=== PATIENT | male | born 1940 | race Caucasian/White ===

== ENCOUNTER 2018-02-12 08:45 | Day surgery (SDC) | payer OTHER ==
[2018-02-12] MEDS ORDERED: D5 LR 1000 ML 1,000 ML IV ONE (08:57)
[2018-02-12] MEDS ORDERED: DIPRIVAN VIAL 20 ML ONE (10:22)
[2018-02-12 11:05] VITALS: BP 109/61
== END 2018-02-12 11:02 | disposition home or self-care (01) ==
LOC: SURG1 08:45
PROVIDERS: ATTEND Internal Medicine Gastroenterology
PROC: 0DB68ZX Excision of Stomach, Via Natural or Artificial Opening Endoscopic, Diagnostic (ICD-10-PCS; principal; 2018-02-12 14:00)
PROC: 0DJ08ZZ Inspection of Upper Intestinal Tract, Via Natural or Artificial Opening Endoscopic (ICD-10-PCS; principal; 2018-02-12 14:00)
PROC: 0D757ZZ Dilation of Esophagus, Via Natural or Artificial Opening (ICD-10-PCS; principal; 2018-02-12 14:00)
DX: R13.19 Other dysphagia (principal); R11.2 Nausea with vomiting, unspecified; K21.9 Gastro-esophageal reflux disease without esophagitis; K22.2 Esophageal obstruction; K20.8 Other esophagitis; K29.60 Other gastritis without bleeding
CPT/HCPCS: 99100; A4217; J3490; J7120

== ENCOUNTER 2018-02-18 09:28 | Observation (INO) | payer OTHER ==
[2018-02-18] MEDS ORDERED: ZOFRAN INJ 4 MG VIAL IVP PRN (10:18)
[2018-02-18] MEDS: NS 1000 ML 1,000 ML IV SCH (10:50)
[2018-02-18 10:55] LABS: BASOPHILS # (AUTO) 0.1 X10^3/uL (0.0-0.1); BASOPHILS % (AUTO) 1.6 % (0.2-1.0); EOSINOPHILS # (AUTO) 0.2 x10^3/uL (0.0-0.2); EOSINOPHILS % (AUTO) 2.3 % (0.9-2.9); HEMATOCRIT 32.8 % (42.0-54.0); LYMPHOCYTES # (AUTO) 2.1 X10^3/uL (1.3-2.9); LYMPHOCYTES % (AUTO) 23.8 % (21.0-51.0); MEAN CORPUSCULAR HGB CONC 33.6 g/dL (33.0-35.0); MEAN CORPUSCULAR VOLUME 86.2 fL (80.0-100.0); MONOCYTES # (AUTO) 0.6 x10^3/uL (0.3-0.8); MONOCYTES % (AUTO) 7.3 % (0.0-13.0); NEUTROPHILS # (AUTO) 5.7 x10^3/uL (2.2-4.8); PLATELET COUNT 229 X10^3/uL (150.0-450.0); RED CELL DISTRIBUTION WIDTH 15.9 % (11.6-16.5); WHITE BLOOD COUNT 8.7 X10^3/uL (3.6-10.0)
[2018-02-18 11:02] LABS: BLOOD UREA NITROGEN 21 mg/dL (7-18); CALCIUM 8.4 mg/dL (8.5-10.1); CARBON DIOXIDE 31.4 mmol/L (21-32); CHLORIDE 100 mmol/L (98-107); CREATININE 1.71 mg/dL (0.70-1.30); eGFR BLACK RACES 50 (>60); eGFR NON BLACK RACES 41 (>60)
[2018-02-18 11:03] LABS: SODIUM 137 mmol/L (136-145)
[2018-02-18] MEDS: PROTONIX INJ 40 MG VIAL IVP SCH ×2 (11:08→20:33)
[2018-02-18] MEDS: EFFEXOR XR 75 MG CAP PO SCH (11:12)
[2018-02-18] MEDS: PEPCID 20 MG IV PREMIX* 20 MG/50 ML BAG IV SCH ×2 (11:12→20:33)
[2018-02-18 12:11] LABS: ALANINE AMINOTRANSFERASE 18 Units/L (12-78); ALBUMIN 3.3 g/dL (3.4-5.0); ALKALINE PHOSPHATASE 70 Units/L (46-116); ASPARTATE AMINO TRANSFERASE 25 Units/L (15-37); TOTAL PROTEIN 7.9 g/dL (6.4-8.2)
[2018-02-18 12:57] LABS: BILIRUBIN,URINE NEGATIVE (NEGATIVE); BLOOD/HEMOGLOBIN,URINE 1+ (NEGATIVE); GLUCOSE, URINE NEGATIVE (NEGATIVE); KETONES,URINE NEGATIVE (NEGATIVE); LEUKOCYTE ESTERASE ,URINE 1+ (NEGATIVE); NITRITES,URINE NEGATIVE (NEGATIVE); PROTEIN,URINE 2+ (NEGATIVE); UROBILINOGEN,URINE 2+ (NORMAL)
[2018-02-18 13:03] LABS: COLOR,URINE DARK YELLOW (YELLOW)
[2018-02-18 13:04] LABS: APPEARANCE,URINE HAZY (CLEAR)
[2018-02-18 13:06] LABS: BACTERIA,URINE TRACE /HPF (NEGATIVE); COARSE GRANULAR CASTS,URINE RARE /HPF (NEGATIVE); RBC,URINE 0-2 /HPF (NONE SEEN); SQUAMOUS EPITHELIAL CELL,UR FEW /HPF (NEGATIVE)
--- NOTE | 2018-02-18 14:41 | RAD ---
Examination: Portable AP chest History: SOB Comparison reference 03/17/2015 Findings: Continued normal heart size with essentially clear lungs. Slight indistinctness of left benjamin phragm is nonspecific. Arteriosclerotic and dilated thoracic aorta. Impression: No acute process or significant interval change demonstrated. Standard PA and lateral vie ws suggested for more accurate evaluation when condition allows. Reported By:
[2018-02-19] MEDS: NS 1000 ML 1,000 ML IV SCH ×2 (01:18→14:35)
[2018-02-19 05:47] LABS: BASOPHILS # (AUTO) 0.1 X10^3/uL (0.0-0.1); BASOPHILS % (AUTO) 1.9 % (0.2-1.0); EOSINOPHILS # (AUTO) 0.2 x10^3/uL (0.0-0.2); EOSINOPHILS % (AUTO) 2.9 % (0.9-2.9); HEMOGLOBIN 10.1 g/dL (13.5-18.0); LYMPHOCYTES # (AUTO) 2.1 X10^3/uL (1.3-2.9); MEAN CORPUSCULAR HEMOGLOBIN 28.8 pg (27.0-34.0); MEAN CORPUSCULAR HGB CONC 33.5 g/dL (33.0-35.0); MEAN CORPUSCULAR VOLUME 85.9 fL (80.0-100.0); MEAN PLATELET VOLUME 9.1 fL (7.4-11.0); MONOCYTES # (AUTO) 0.5 x10^3/uL (0.3-0.8); MONOCYTES % (AUTO) 6.9 % (0.0-13.0); NEUTROPHILS # (AUTO) 4.9 x10^3/uL (2.2-4.8); NEUTROPHILS % (AUTO) 61.3 % (42.0-75.0); PLATELET COUNT 202 X10^3/uL (150.0-450.0); RED BLOOD COUNT 3.49 X10^6/uL (4.7-6.0); RED CELL DISTRIBUTION WIDTH 15.5 % (11.6-16.5); WHITE BLOOD COUNT 7.9 X10^3/uL (3.6-10.0)
[2018-02-19 05:59] LABS: ALANINE AMINOTRANSFERASE 14 Units/L (12-78); ALBUMIN 2.5 g/dL (3.4-5.0); ALKALINE PHOSPHATASE 59 Units/L (46-116); ASPARTATE AMINO TRANSFERASE 14 Units/L (15-37); BLOOD UREA NITROGEN 19 mg/dL (7-18); CALCIUM 7.5 mg/dL (8.5-10.1); CARBON DIOXIDE 25.5 mmol/L (21-32); CHLORIDE 107 mmol/L (98-107); COR CA(FOR HYPOALB) 8.7 mg/dL (8.5-10.1); CREATININE 1.41 mg/dL (0.70-1.30); SODIUM 140 mmol/L (136-145); TOTAL PROTEIN 6.2 g/dL (6.4-8.2); eGFR BLACK RACES > 60 (>60); eGFR NON BLACK RACES 52 (>60)
[2018-02-19] MEDS ORDERED: MAGNESIUM SULFATE 1 GM/100 mL PREMIX 1 GM/100 ML BAG IV PRN (06:06)
[2018-02-19] MEDS ORDERED: POTASSIUM CHLORIDE LIQ 20 MEQ UDC PO PRN (06:06)
[2018-02-19] MEDS ORDERED: POTASSIUM CHL 40 MEQ/NS 0.45% 500 ML IV PRN (06:06)
[2018-02-19] MEDS ORDERED: K-LYTE EFFERVESCENT PO PRN (06:06)
[2018-02-19] MEDS ORDERED: K-RIDER 10 MEQ/NS 100 ML 10 MEQ/100 ML BAG IV PRN (06:06)
[2018-02-19] MEDS ORDERED: POTASSIUM CHL 60 MEQ/NS 0.45% 500 ML IV PRN (06:06)
[2018-02-19] MEDS: PROTONIX INJ 40 MG VIAL IVP SCH ×2 (09:09→20:27)
[2018-02-19] MEDS: PEPCID 20 MG IV PREMIX* 20 MG/50 ML BAG IV SCH ×2 (09:09→20:27)
[2018-02-19] MEDS: EFFEXOR XR 75 MG CAP PO SCH (09:10)
[2018-02-19 12:32] VITALS: BMI 17.8
[2018-02-19] MEDS ORDERED: M.S. CONTIN 30 MG EXTENDED RELEASE PO PRN (13:33)
[2018-02-19] MEDS ORDERED: M.S. CONTIN 15 MG (EXTENDED RELEASE) PO PRN (13:58)
[2018-02-19] MEDS ORDERED: PROTONIX TAB 40 MG PO SCH (14:00)
[2018-02-19] MEDS: SYNTHROID 50 mcg TAB PO SCH (14:35)
[2018-02-19] MEDS: MEGACE PO SCH ×2 (14:35→20:28)
[2018-02-19] MEDS: CORDARONE TAB 200 MG PO SCH (14:35)
[2018-02-19] MEDS: COREG TAB 6.25 MG PO SCH (20:28)
[2018-02-19] MEDS ORDERED: PATIENT'S HOME MEDICATION (Clonazepam [Clonazepam] 2 MG) PO SCH (21:00)
[2018-02-19] MEDS ORDERED: KLONOPIN TAB 1 MG PO SCH (21:00)
[2018-02-20] MEDS: NS 1000 ML 1,000 ML IV SCH (04:18)
[2018-02-20 06:41] LABS: BASOPHILS # (AUTO) 0.1 X10^3/uL (0.0-0.1); BASOPHILS % (AUTO) 1.5 % (0.2-1.0); EOSINOPHILS # (AUTO) 0.2 x10^3/uL (0.0-0.2); EOSINOPHILS % (AUTO) 1.7 % (0.9-2.9); HEMATOCRIT 30.7 % (42.0-54.0); HEMOGLOBIN 10.4 g/dL (13.5-18.0); LYMPHOCYTES # (AUTO) 2.2 X10^3/uL (1.3-2.9); LYMPHOCYTES % (AUTO) 22.1 % (21.0-51.0); MEAN CORPUSCULAR HEMOGLOBIN 29.4 pg (27.0-34.0); MEAN CORPUSCULAR VOLUME 86.4 fL (80.0-100.0); MEAN PLATELET VOLUME 9.1 fL (7.4-11.0); MONOCYTES # (AUTO) 0.8 x10^3/uL (0.3-0.8); MONOCYTES % (AUTO) 7.7 % (0.0-13.0); NEUTROPHILS # (AUTO) 6.6 x10^3/uL (2.2-4.8); PLATELET COUNT 211 X10^3/uL (150.0-450.0); RED BLOOD COUNT 3.56 X10^6/uL (4.7-6.0); RED CELL DISTRIBUTION WIDTH 15.5 % (11.6-16.5); WHITE BLOOD COUNT 9.8 X10^3/uL (3.6-10.0)
[2018-02-20 07:00] LABS: ALANINE AMINOTRANSFERASE 17 Units/L (12-78); ALBUMIN 2.7 g/dL (3.4-5.0); ALKALINE PHOSPHATASE 61 Units/L (46-116); ASPARTATE AMINO TRANSFERASE 19 Units/L (15-37); BLOOD UREA NITROGEN 13 mg/dL (7-18); CALCIUM 7.8 mg/dL (8.5-10.1); CARBON DIOXIDE 23.6 mmol/L (21-32); CHLORIDE 108 mmol/L (98-107); COR CA(FOR HYPOALB) 8.8 mg/dL (8.5-10.1); CREATININE 1.23 mg/dL (0.70-1.30); SODIUM 140 mmol/L (136-145); TOTAL PROTEIN 6.5 g/dL (6.4-8.2); eGFR BLACK RACES > 60 (>60); eGFR NON BLACK RACES > 60 (>60)
[2018-02-20] MEDS: MEGACE PO SCH (09:52)
[2018-02-20] MEDS: EFFEXOR XR 75 MG CAP PO SCH (09:52)
[2018-02-20] MEDS: COREG TAB 6.25 MG PO SCH (09:52)
[2018-02-20] MEDS: CORDARONE TAB 200 MG PO SCH (09:52)
[2018-02-20] MEDS: PEPCID 20 MG IV PREMIX* 20 MG/50 ML BAG IV SCH (09:53)
[2018-02-20] MEDS: PROTONIX INJ 40 MG VIAL IVP SCH (09:53)
[2018-02-20] MEDS: SYNTHROID 50 mcg TAB PO SCH (09:53)
[2018-02-20 12:58] VITALS: BP 139/68
--- NOTE | 2018-03-04 09:46 | DR.UPDATE ---
H&P Update History and Physical Update: History and Physical reviewed and patient examined. Changes noted: Yes with the following: PRESENTED TO THE OFFICE TODAY WITH COMPLAINTS OF GENERALIZED WEAKNESS AND DECREASED APPETITE. PATIENTS SPOUSE REPORTS THAT HE HAS HAD AN UNSTEADY GAIT FOR THE PAST TWO DAYS. ON EXAMINATION, SKIN TURGOR NOTED. HEART REGULAR IN RATE AND RHYTHM. BILATERAL LUNGS NOTED WITH DIMINISHED LUNG SOUNDS THROUGHOUT. ABDOMEN FLAT, SOFT, NON-TENDER WITH NORMAL BOWEL SOUNDS NOTED IN ALL QUADRANTS. WE PLANNED TO ADMIT PATIENT FOR FURTHER EVALUATION AND TREATMENT. ON ADMISSION, WE WILL OBTAIN A CBC, CMP, URINALYSIS, AND A CHEST XRAY. HE WILL BE STARTED ON NORMAL SALINE AT 80ML/HR. OTHERWISE, WE WILL FOLLOW UP WITH AM LABS AND CONTINUE TO MONITOR PATIENT.
--- NOTE | 2018-03-04 10:04 | PCM.PROG ---
Progress Note - Progress Note for Day of Date: 02/19/18 - Subjective Subjective: WAS ADMITTED FOR DEHYDRATION AND GENERALIZED WEAKNESS. TODAY, HE IS ALERT AND ORIENTED, LYING IN BED ON MORNING ROUNDS. HE CONTINUES WITH COMPLAINTS OF GENERALIZED WEAKNESS. HE ALSO REPORTS NAUSEA, BUT DENIES VOMITING SINCE YESTERDAY. STAFF REPORTS THAT PATIENT HAS HAD INTERMITTENT CONFUSION THROUGHOUT THE NIGHT AND ALSO CONTINUES WITH AN UNSTEADY GAIT. ON EXAMINATION, HEART IS REGULAR IN RATE AND RHYTHM. BILATERAL LUNGS CONTINUE WITH DIMINISHED LUNG SOUNDS THROGHOUT. ABDOMEN IS FLAT, SOFT, AND NON-TENDER WITH NORMAL BOWEL SOUNDS NOTED IN ALL QUADRANTS. NORMAL RANGE OF MOTION NOTED TO EXTREMITIES. HIS VITALS THIS MORNING ARE 98.2-64-16-91%-147/79. LABS WERE OBTAINED. ABNORMAL LAB VALUES INCLUDE THE FOLLOWING: RBC 3.56, HGB 10.4, HCT 30.7, CHLORIDE 108, CALCIUM 7.8, ALBUMIN 2.7. TODAY, WE WILL CONTINUE WITH IV HYDRATION AND PHYSICAL THERAPY. OTHERWISE, WE WILL FOLLOW UP WITH AM LABS AND CONTINUE TO MONITOR PATIENT. - Past Medical Family Social History Past Med/Fam/Surg Hx: No changes since H&P Allergies: Allergies baclofen Allergy (Verified 02/18/18 10:28) - Review of Systems ROS: No change since H&P - Vital Signs and I&O's Vital Signs: Temperature 98.6 F Pulse Rate [Left Brachial] 67 Respiratory Rate 20 Blood Pressure [Left Arm] 139/68 Blood Pressure [Right Arm] 163/84 Blood Pressure [Right Radial 117/68 Artery] Blood Pressure 109/61 O2 Sat by Pulse Oximetry 94 - Physical Exam Oriented: Normal Eyes: Normal Ear: Normal Nose: Normal Throat: Normal Respiratory: Generalized, Diminished Cardiovascular: Normal : Normal Auscultation: Bowel Sounds: Normal Palpation: Normal Tenderness: Normal Skin: Decreased Turgur Musculoskeletal: Normal Psychiatric: Normal Mood Description: Calm Affect: Normal Speech Pattern: Clear, Appropriate - Laboratory and Diagnostics Result Diagrams: 02/20/18 05:33 02/20/18 05:33 Labs: Laboratory WBC 9.8 X10^3/uL (3.6-10.0) 02/20/18 05:33 RBC 3.56 X10^6/uL (4.7-6.0) L 02/20/18 05:33 Hgb 10.4 g/dL (13.5-18.0) L 02/20/18 05:33 Hct 30.7 % (42.0-54.0) L 02/20/18 05:33 MCV 86.4 fL (80.0-100.0) 02/20/18 05:33 MCH 29.4 pg (27.0-34.0) 02/20/18 05:33 MCHC 34.0 g/dL (33.0-35.0) 02/20/18 05:33 RDW 15.5 % (11.6-16.5) 02/20/18 05:33 Plt Count 211 X10^3/uL (150.0-450.0) 02/20/18 05:33 MPV 9.1 fL (7.4-11.0) 02/20/18 05:33 Neut % (Auto) 67.0 % (42.0-75.0) 02/20/18 05:33 Lymph % (Auto) 22.1 % (21.0-51.0) 02/20/18 05:33 [place] % (Auto) 7.7 % (0.0-13.0) 02/20/18 05:33 Eos % (Auto) 1.7 % (0.9-2.9) 02/20/18 05:33 Baso % (Auto) 1.5 % (0.2-1.0) H 02/20/18 05:33 Neut # (Auto) 6.6 x10^3/uL (2.2-4.8) H 02/20/18 05:33 Lymph # (Auto) 2.2 X10^3/uL (1.3-2.9) 02/20/18 05:33 [place] # (Auto) 0.8 x10^3/uL (0.3-0.8) 02/20/18 05:33 Eos # (Auto) 0.2 x10^3/uL (0.0-0.2) 02/20/18 05:33 Baso # (Auto) 0.1 X10^3/uL (0.0-0.1) 02/20/18 05:33 Absolute Nucleated RBC 0.0 /100WBC 02/20/18 05:33 Sodium 140 mmol/L (136-145) 02/20/18 05:33 Corrected Sodium TNP 02/20/18 05:33 Potassium 3.9 mmol/L (3.5-5.1) 02/20/18 05:33 Chloride 108 mmol/L (98-107) H 02/20/18 05:33 Carbon Dioxide 23.6 mmol/L (21-32) 02/20/18 05:33 BUN 13 mg/dL (7-18) 02/20/18 05:33 Creatinine 1.23 mg/dL (0.70-1.30) 02/20/18 05:33 Est GFR (MDRD) Af Amer > 60 (>60) 02/20/18 05:33 Est GFR (MDRD) Non-Af > 60 (>60) 02/20/18 05:33 Glucose 87 mg/dL (65-99) 02/20/18 05:33 Calcium 7.8 mg/dL (8.5-10.1) L 02/20/18 05:33 Corrected Calcium 8.8 mg/dL (8.5-10.1) 02/20/18 05:33 Magnesium 1.8 mg/dL (1.7-2.9) 02/19/18 04:50 Total Bilirubin 0.90 mg/dL (0.2-1.0) 02/20/18 05:33 AST 19 Units/L (15-37) 02/20/18 05:33 ALT 17 Units/L (12-78) 02/20/18 05:33 Alkaline Phosphatase 61 Units/L (46-116) 02/20/18 05:33 Total Protein 6.5 g/dL (6.4-8.2) 02/20/18 05:33 Albumin 2.7 g/dL (3.4-5.0) L 02/20/18 05:33 Globulin 3.8 g/dL (2.5-4.5) 02/20/18 05:33 Albumin/Globulin Ratio 0.7 Ratio (1.1-2.1) L 02/20/18 05:33 Specimen Type Clean catch urine 02/18/18 12:48 Urine Color Dark yellow (YELLOW) 02/18/18 12:48 Urine Appearance Hazy (CLEAR) 02/18/18 12:48 Urine pH 6.0 (5.0 - 8.0) 02/18/18 12:48 Ur Specific [place] 1.015 (1.000-1.030) 02/18/18 12:48 Urine Protein 2+ (NEGATIVE) 02/18/18 12:48 Urine Glucose (UA) Negative (NEGATIVE) 02/18/18 12:48 Urine Ketones Negative (NEGATIVE) 02/18/18 12:48 Urine Occult Blood 1+ (NEGATIVE) 02/18/18 12:48 Urine Nitrite Negative (NEGATIVE) 02/18/18 12:48 Urine Bilirubin Negative (NEGATIVE) 02/18/18 12:48 Urine Urobilinogen 2+ (NORMAL) 02/18/18 12:48 Ur Leukocyte Esterase 1+ (NEGATIVE) 02/18/18 12:48 Urine RBC 0-2 /HPF (NONE SEEN) 02/18/18 12:48 Urine WBC 0-2 /HPF (NONE SEEN) 02/18/18 12:48 Ur Squamous Epith Cells Few /HPF (NEGATIVE) 02/18/18 12:48 Urine Bacteria Trace /HPF (NEGATIVE) 02/18/18 12:48 Coarse Granular Casts Rare /HPF (NEGATIVE) 02/18/18 12:48 Ur Culture Indicated? No/not indicated 02/18/18 12:48 - Plan (1) Dehydration Status: Acute Plan: NORMAL SALINE AT 80ML/HR, CONTINUE TO MONITOR (2) Generalized weakness Status: Acute Plan: NORMAL SALINE AT 80ML/HR, PHYSICAL THERAPY, CONTINUE TO MONTIOR (3) Decreased appetite Status: Chronic Plan: CONTINUE MEGACE, CONTINUE TO MONITOR
== END 2018-02-20 12:50 | disposition home or self-care (01) ==
LOC: MED/SURG 09:28 → UNDOADMOB 09:28 → MED/SURG 09:59
PROVIDERS: ADMIT Internal Medicine; ATTEND Internal Medicine
DX: E86.0 Dehydration (principal); R11.10 Vomiting, unspecified; I10 Essential (primary) hypertension; K21.9 Gastro-esophageal reflux disease without esophagitis; R53.1 Weakness; E55.9 Vitamin D deficiency, unspecified; F32.89 Other specified depressive episodes; M51.16 Intervertebral disc disorders with radiculopathy, lumbar region; D64.89 Other specified anemias; R94.4 Abnormal results of kidney function studies; R26.89 Other abnormalities of gait and mobility; R13.11 Dysphagia, oral phase; R06.02 Shortness of breath; R63.0 Anorexia
CPT/HCPCS: 36415; 71045; 80053; 81001; 83735; 85025; 94760; A4222; C9113; G8978; G8979; S0028; S0179; G0378

== ENCOUNTER 2018-02-22 20:54 | Emergency (ER) | payer OTHER ==
[2018-02-22 21:02] VITALS: BMI 16.7
--- NOTE | 2018-02-22 21:26 | CT ---
CT HEAD WITHOUT CONTRAST CLINICAL HISTORY: 78-year-old male status post fall with loss of consciousness and laceration to the left frontal scalp. COMPARISON: None. TECHNIQUE: Multiple, non-contrasted axial CT images were obtained from the skull base to the cranial vertex. Coronal and sagittal reformats were performed. FINDINGS: There are no abnormal intra- or extra-axial fluid collections, midline shift, or mass effec t. Zafar-white differentiation is normal. Partially empty sella. Global cortical involutional changes are present that are advanced for the patient's stated age. The ventricular system is mildly enlarged but commensurate with the degree of sulcal prominence. Periventricular and supraventricular white ma tter hypodensity is present that is nonspecific in appearance, but most likely to represent microvasc ular ischemic changes. Atherosclerotic vascular calcification is present within the carotid siphons a nd distal vertebral arteries. Left frontal scalp defect with associated small contusion/hematoma. The imaged paranasal sinuses, mastoid air cells, and tympanic spaces are clear. Bilateral lens implan ts. IMPRESSION: 1. No definite evidence of an acute intracranial process. 2. Small left frontal scalp defect with associated contusion/hematoma. 3. Severe microvascular white matter ischemic changes, with associated volume loss. Reported By:
--- NOTE | 2018-02-22 21:33 | DR.GENAD ---
HPI - PCP Primary Care Physician: ryan - Complaint/Symptoms Chief Complaint Doctors Comments: FELL AT HOME AND HIT HEAD ON TUB AND SUSTAIN SKIN TEAR TO LT FOREARM AND LACERATION TO LT EYEBROW. PATIENT LOC. TD UTD. Chief Complaint:: pt fell and hit head on bath tub laceration to lt eye brow with loc - Nurses notes reviewed Nurses Notes Review: Yes - Source History Provided: Patient - Mode of Arrival Mode of Arrival: Wheelchair - Timing Onset of Chief Complaint: 02/22/18 Came on: Suddenly - Duration Duration: Constant Duration: Days - Severity Severity: Moderate PMH - PMH Past Medical History: Yes Past Medical History: Anxiety, Arthritis, Hypertension, Hypothyroidism Past Surgical History: Yes Surgical History: Bowel Resection - Family History History of Family Medical Conditions: No Family Medical History: Cancer, Heart Failure, Hypertension - Social History Does patient currently use any type of tobacco product: No Have you used tobacco products in the last 12 months: No Does any household member use tobacco: No Alcohol Use: Occasionally Do you use any recreational Drugs:: No Lives Where: Home - infectious screening In the last 2 months have you had wt loss of >10#?: NO Have you had fever, night sweats or hemotysis?: No Have you traveled outside the country in the last 6 months?: No Isolation: Standard ROS - Review of Systems Constitutional: No Symptoms Reported Eyes: Other (LT EARBROW LACERATION 3CM.) ENTM: Nose Pain (SWELLING AND ABRSION ON NOSE WITH PAIN.) Respiratoy: No Symptoms Reported Cardiovascular: No Symptoms Reported Gastrointestinal/Abdominal: No Symptoms Reported Genitourinary: No Symptoms Reported Neurological: No Symptoms Reported Musculoskeletal: No Symptoms Reported Integumentary: Other (ABRASION NOSE, SKIN TEAR LT FOREARM.) Hematologic/Lymphatic: Easy Bleeding, Easy Bruising Endocrine: No Symptoms Reported. negative: Flushing All Other Systems: Reviewed and Negative PE - Vital Signs Vitals: Temperature 97.6 F Pulse Rate 58 Respiratory Rate 20 Blood Pressure [Left Arm] 122/78 Blood Pressure [Right Arm] 163/84 Blood Pressure [Right Radial 117/68 Artery] Blood Pressure 137/66 O2 Sat by Pulse Oximetry 98 - General Limitations: No Limitations General Appearance: Alert - Head Head Exam: Other (3CM LAC LT EYEBROW.) - Eyes Eye exam: PERRL, EOMI, Periorbital Swelling (LT EYE) - ENT ENT Exam: Normal External Ear Exam External Ear Exam: Normal External Inspection TM/Canal Exam: Bilateral Normal Nose Exam: Abrasion (NOSE) Mouth Exam: Normal Inspection Throat Exam: Normal Inspection - Neck Neck Exam: Trachea Midline. negative: Tenderness, Meningismus, Lymphadenopathy - Chest Chest Inspection: Symmetric Chest Wall Rise - Respiratory Respiratory Exam: Normal Lung Sounds Bilat Respiratory Exam: Bilateral Clear to Auscultation - Cardiovascular Cardiovascular Exam: Regular Rate, Normal Rhythm, Normal Heart Sounds - Abdominal Exam Abdominal Exam: Normal Bowel Sounds, Soft. negative: Tenderness - Extremities Extremities Exam: Tenderness (SKIN TEAR LT FOREARM) - Back Back Exam: Normal Inspection - Neurologic Neurological Exam: Alert, Oriented X3 - Psychiatric Psychiatric Exam: Normal Affect, Normal Mood - Skin Skin Exam: Erythema MDM - Additional Information Additional Information Obtained From: Family - Differential Diagnosis Differential Diagnosis: SCALP CONTUSION, LAC LT EYEBROW. SKIN TEAR LT FOREARM Course - Treatment Treatment: SEE ORDERS. - Education/Counseling Education/Counseling: Patient, Family, Education Educated On: Diagnosis, Needs for Follow Up ROR - XRAY XRAY Interpreted by: Radiologist XRAY Findings: REPORT DISCUSS WITH PATIENT. Procedures - Laceration/Wound Repair Left Face Wound Length (cm): 3 Wound's Depth, Shape: Linear, Irregular Wound Explored: contaminated Betadine Prep?: Yes Anesthesia: 1% Lidocaine, 1% Lidocaine w/ Epi Wound Debrided: minimal Wound Repaired With: sutures Suture Size/Type: 4:0, [place] Number of Sutures: 6 Layer Closure?: No Sterile Dressing Applied?: Yes Splint Applied?: No Sling Applied?: No - Diagnosis Discharge Problem: Laceration of scalp Qualifiers: Encounter type: initial encounter Qualified Code(s): S01.01XA - Laceration without foreign body of scalp, initial encounter Contusion of scalp Qualifiers: Encounter type: initial encounter Qualified Code(s): S00.03XA - Contusion of scalp, initial encounter Abrasion of nose Qualifiers: Encounter type: initial encounter Qualified Code(s): S00.31XA - Abrasion of nose, initial encounter Contusion, nose Qualifiers: Encounter type: initial encounter Qualified Code(s): S00.33XA - Contusion of nose, initial encounter Skin tear of left forearm without complication Qualifiers: Encounter type: initial encounter Qualified Code(s): S51.812A - Laceration without foreign body of left forearm, initial encounter - Discharge Plan Condition: Stable - Follow ups/Referrals Follow ups/Referrals: Rodrigo Guaman [Primary Care Provider] - 3 days - Instructions Instructions: Abrasion, Facial or Scalp Contusion, [id number], Skin Tear Care , Laceration Care, Adult, [id number] Additional Instructions: RETURN TO ED IF WORSE. SUTURE OUT IN 10 DAYS.
[2018-02-22] MEDS ORDERED: XYLOCAINE 1% and EPINEPHRINE 1:100,000 ONE (21:36)
[2018-02-22] MEDS ORDERED: BACITRACIN ZINC TOP ONE (21:57)
[2018-02-22 22:16] VITALS: BP 122/78
== END 2018-02-22 22:16 | disposition home or self-care (01) ==
LOC: ER 20:54
PROC: 0WQ2XZZ Repair Face, External Approach (ICD-10-PCS; principal; 2018-02-22)
DX: S01.01XA Laceration without foreign body of scalp, initial encounter (principal); S00.03XA Contusion of scalp, initial encounter; S00.31XA Abrasion of nose, initial encounter; S00.33XA Contusion of nose, initial encounter; S51.812A Laceration without foreign body of left forearm, initial encounter; W01.198A Fall on same level from slipping, tripping and stumbling with subsequent striking against other object, initial encounter; Y92.9 Unspecified place or not applicable
CPT/HCPCS: 12013; 70450; 99282; J2001

== ENCOUNTER 2018-03-13 00:15 | Inpatient (IN) | payer OTHER ==
[2018-03-13] MEDS ORDERED: NS 1000 ML 1,000 ML IV ONE (00:32)
[2018-03-13] MEDS ORDERED: NS 1000 ML 1,000 ML ONE (00:33)
--- NOTE | 2018-03-13 00:52 | DR.WEAKNES ---
HPI - Time Seen Time seen: 12:25 - Primary Care Physician Primary Care Physician: OSVALDO - Complaints Chief Complaint Doctors Comments: Patient presented to the ED for evaluation because of weaknes and falling all day. Family reports that he has not been eating as usual since he had EGD two weeks ago. Upon presentation he was hypotensive 90/54 oxygen sat 85% R18. There is no history of fever, vomiting or diarrhea. Chief Complaint:: WEAKNESS/FALLING X 2DAYS - Reviewed Nurses Notes Reviewed: Yes - Source History Provided: Family Member, EMS - Mode of Arrival Mode of Arrival: EMS - Timing Onset of Chief Complaint: 03/11/18 Since onset, symptoms are:: Improved Symptom Onset: Known (two weeks) - Duration Duration: Unknown Duration: Weeks - Context Onset: Spontaneous Symptoms: Weakness History of: CVA Stroke Symptoms: Weakness of limb - Location Weakness Location: Generalized - Associated Signs and Symptoms Associated Signs and Symptoms: None PMH - PMH Past Medical History: Yes Past Medical History: Anxiety, Arthritis, Coronary Artery Disease, Hypertension , Hypothyroidism Past Surgical History: Yes Surgical History: Bowel Resection - Family History History of Family Medical Conditions: Yes Family Medical History: Cancer, Heart Failure, Hypertension - Social History Does patient currently use any type of tobacco product: No Have you used tobacco products in the last 12 months: No Type of Tobacco Use: None Does any household member use tobacco: No Alcohol Use: None Do you use any recreational Drugs:: No Lives With: Spouse Lives Where: Home - infectious screening In the last 2 months have you had wt loss of >10#?: NO Have you had fever, night sweats or hemotysis?: No Have you traveled outside the country in the last 6 months?: No Isolation: Standard ROS - Review of Systems Eyes: No Symptoms Reported ENTM: No Symptoms Reported Respiratoy: No Symptoms Reported Cardiovascular: No Symptoms Reported Gastrointestinal/Abdominal: No Symptoms Reported Genitourinary: No Symptoms Reported Neurological: No Symptoms Reported Musculoskeletal: No Symptoms Reported Integumentary: No Symptoms Reported Hematologic/Lymphatic: No Symptoms Reported Endocrine: No Symptoms Reported Psychiatric: No Symptoms Reported All Other Systems: Reviewed and Negative PE - Vital Signs Vitals: Temperature 98.7 F Pulse Rate 84 Respiratory Rate 18 Blood Pressure [Left Arm] 122/78 Blood Pressure [Right Arm] 163/84 Blood Pressure [Right Radial 117/68 Artery] Blood Pressure 90/54 O2 Sat by Pulse Oximetry 85 - General Limitations: No Limitations General Appearance: Lethargic - Head Head Exam: Normal Inspection, Atraumatic Head Exam Physical: negative: Laceration, Abrasion, Contusion, Hematoma, Raccoon Eyes, Guthrie's Sign, Tenderness of Temporal Artery, CSF Rhinorrhea, CSF Otorrhea, Other - Eyes Eye exam: Normal Appearance Eyelids: Normal Inspection: Bilateral Pupils: Regular, Round: Bilateral Sclera/Conjunctival: Normal Inspection: Bilateral Anterior Chamber: Normal Inspection: Bilateral - ENT ENT Exam: Normal Exam, Mucous Membranes Dry Mouth Exam: Normal Inspection Throat Exam: Normal Inspection - Neck Neck Exam: Normal Inspection, Full ROM - Chest Chest Inspection: Normal Inspection, Symmetric Chest Wall Rise - Respiratory Respiratory Exam: Normal Lung Sounds Bilat Respiratory Exam: Bilateral Clear to Auscultation - Cardiovascular Cardiovascular Exam: Regular Rate, Normal Rhythm - Abdominal Exam Abdominal Exam: Normal Inspection, Normal Bowel Sounds Abdominal Tenderness: negative: RUQ, RLQ, LUQ, LLQ, Epigastrium, Suprapubic, Diffuse, Mild, Moderate, Severe, Other - Extremities Extremities Exam: Normal Inspection, Full ROM - Back Back Exam: Normal Inspection - Neurologic Neurological Exam: Alert, Oriented X3, CN II-XII Intact Cranial Nerve Exam: EOM Function (II, III, IV, ): Normal - Psychiatric Psychiatric Exam: Normal Affect, Normal Mood - Skin Skin Exam: Warm, Dry, Intact Course - Reevaluation 1st: Improved - Consultation Called: 20:00 ROR - Labs Reviewed Result Diagrams: 03/13/18 00:40 03/13/18 00:40 Laboratory: WBC 10.5 X10^3/uL (3.6-10.0) H 03/13/18 00:40 RBC 2.95 X10^6/uL (4.7-6.0) L 03/13/18 00:40 Hgb 8.6 g/dL (13.5-18.0) L 03/13/18 00:40 Hct 25.7 % (42.0-54.0) L 03/13/18 00:40 MCV 86.9 fL (80.0-100.0) 03/13/18 00:40 MCH 29.2 pg (27.0-34.0) 03/13/18 00:40 MCHC 33.6 g/dL (33.0-35.0) 03/13/18 00:40 RDW 15.8 % (11.6-16.5) 03/13/18 00:40 Plt Count 226 X10^3/uL (150.0-450.0) 03/13/18 00:40 MPV 8.7 fL (7.4-11.0) 03/13/18 00:40 Neut % (Auto) 77.4 % (42.0-75.0) H 03/13/18 00:40 Lymph % (Auto) 13.0 % (21.0-51.0) L 03/13/18 00:40 [place] % (Auto) 8.1 % (0.0-13.0) 03/13/18 00:40 Eos % (Auto) 0.7 % (0.9-2.9) L 03/13/18 00:40 Baso % (Auto) 0.8 % (0.2-1.0) 03/13/18 00:40 Neut # (Auto) 8.1 x10^3/uL (2.2-4.8) H 03/13/18 00:40 Lymph # (Auto) 1.4 X10^3/uL (1.3-2.9) 03/13/18 00:40 [place] # (Auto) 0.8 x10^3/uL (0.3-0.8) 03/13/18 00:40 Eos # (Auto) 0.1 x10^3/uL (0.0-0.2) 03/13/18 00:40 Baso # (Auto) 0.1 X10^3/uL (0.0-0.1) 03/13/18 00:40 Absolute Nucleated RBC 0.0 /100WBC 03/13/18 00:40 INR Target Range - 03/13/18 00:40 INR 1.33 (0.8-1.3) H 03/13/18 00:40 APTT 31.9 SECONDS (22.9-36.5) 03/13/18 00:40 PTT Comment - 03/13/18 00:40 Sample Site Rbra 03/13/18 00:55 ABG pH 7.440 (7.35-7.45) 03/13/18 00:55 ABG pCO2 31.0 mmHg (35.0-45.0) L 03/13/18 00:55 ABG pO2 38.0 mmHg (80.0-100.0) L* 03/13/18 00:55 ABG HCO3 21.1 mmol/L (22-26) L 03/13/18 00:55 ABG O2 Saturation 75.0 % (90-100) L* 03/13/18 00:55 ABG Base Excess -2.2 mmol/L (-2.0-2.0) L 03/13/18 00:55 Ken Test Na 03/13/18 00:55 A-a Gradient 151.0 mmHg 03/13/18 00:55 FiO2 32.000 03/13/18 00:55 Blood Gas Comments Dorcas abg well-mtf 03/13/18 00:55 Sodium 145 mmol/L (136-145) 03/13/18 00:40 Corrected Sodium 146 mmol/L (136-145) H 03/13/18 00:40 Potassium 3.1 mmol/L (3.5-5.1) L 03/13/18 00:40 Chloride 108 mmol/L (98-107) H 03/13/18 00:40 Carbon Dioxide 22.9 mmol/L (21-32) 03/13/18 00:40 BUN 32 mg/dL (7-18) H 03/13/18 00:40 Creatinine 2.35 mg/dL (0.70-1.30) H 03/13/18 00:40 Est GFR (MDRD) Af Amer 35 (>60) L 03/13/18 00:40 Est GFR (MDRD) Non-Af 29 (>60) L 03/13/18 00:40 Glucose 121 mg/dL (65-99) H 03/13/18 00:40 Lactic Acid 1.7 mmol/L (0.4-2.0) 03/13/18 01:40 Calcium 7.6 mg/dL (8.5-10.1) L 03/13/18 00:40 Corrected Calcium 8.9 mg/dL (8.5-10.1) 03/13/18 00:40 Magnesium 1.6 mg/dL (1.7-2.9) L 03/13/18 00:40 Total Bilirubin 0.80 mg/dL (0.2-1.0) 03/13/18 00:40 AST 28 Units/L (15-37) 03/13/18 00:40 ALT 18 Units/L (12-78) 03/13/18 00:40 Alkaline Phosphatase 63 Units/L (46-116) 03/13/18 00:40 Creatine Kinase 533 Units/L (39-308) H 03/13/18 00:40 CK-MB (CK-2) 2.2 ng/mL (0-4.0) 03/13/18 00:40 CK/CKMB % Calc 0.4 % (<4) 03/13/18 00:40 Troponin I < 0.02 ng/mL (0-1.5) 03/13/18 00:40 Total Protein 6.9 g/dL (6.4-8.2) 03/13/18 00:40 Albumin 2.4 g/dL (3.4-5.0) L 03/13/18 00:40 Globulin 4.5 g/dL (2.5-4.5) 03/13/18 00:40 Albumin/Globulin Ratio 0.5 Ratio (1.1-2.1) L 03/13/18 00:40 - XRAY XRAY Interpreted by: Radiologist (Chest: Trachea is midline. heart size is enlarged, unchanged. Chronic interstitial lung disease is noted; however, there is moderate increased interstitial opacities throughout the right lung most severly affecting the right lung base consistent with multi focal infiltrate/acute bronchitis. Similar, less severe findings are noted within the left lung base. No pleural effusion or pneumothorax. Pleural parenchymal scarring is noted within the lung apices bilaterally. Calcified atherosclerotic disease of a tortuous throacic aorta is noted. Impression: Acute interstitial pneumonia and /or bronchitis within the right uper, right lower and left lower lobes.2. Stable cardiomegaly.) - Diagnosis Discharge Problem: Acute prerenal azotemia, Dehydration, Hypokalemia, Respiratory distress Pneumonia Qualifiers: Pneumonia type: due to unspecified organism Laterality: bilateral Lung location : unspecified part of lung Qualified Code(s): J18.9 - Pneumonia, unspecified organism - Discharge Plan Condition: Stable - Follow ups/Referrals Follow ups/Referrals: Rodrigo Guaman [Primary Care Provider] - 3 days - Instructions
[2018-03-13 00:56] LABS: BASOPHILS # (AUTO) 0.1 X10^3/uL (0.0-0.1); BASOPHILS % (AUTO) 0.8 % (0.2-1.0); EOSINOPHILS # (AUTO) 0.1 x10^3/uL (0.0-0.2); EOSINOPHILS % (AUTO) 0.7 % (0.9-2.9); HEMATOCRIT 25.7 % (42.0-54.0); HEMOGLOBIN 8.6 g/dL (13.5-18.0); LYMPHOCYTES # (AUTO) 1.4 X10^3/uL (1.3-2.9); MEAN CORPUSCULAR HEMOGLOBIN 29.2 pg (27.0-34.0); MEAN CORPUSCULAR HGB CONC 33.6 g/dL (33.0-35.0); MEAN CORPUSCULAR VOLUME 86.9 fL (80.0-100.0); MEAN PLATELET VOLUME 8.7 fL (7.4-11.0); MONOCYTES # (AUTO) 0.8 x10^3/uL (0.3-0.8); MONOCYTES % (AUTO) 8.1 % (0.0-13.0); NEUTROPHILS # (AUTO) 8.1 x10^3/uL (2.2-4.8); NEUTROPHILS % (AUTO) 77.4 % (42.0-75.0); PLATELET COUNT 226 X10^3/uL (150.0-450.0); RED BLOOD COUNT 2.95 X10^6/uL (4.7-6.0); RED CELL DISTRIBUTION WIDTH 15.8 % (11.6-16.5); WHITE BLOOD COUNT 10.5 X10^3/uL (3.6-10.0)
[2018-03-13 01:02] LABS: ABG BASE EXCESS -2.2 mmol/L (-2.0-2.0); ABG HCO3 21.1 mmol/L (22-26)
[2018-03-13 01:09] LABS: BLOOD UREA NITROGEN 32 mg/dL (7-18); CALCIUM 7.6 mg/dL (8.5-10.1); CARBON DIOXIDE 22.9 mmol/L (21-32); CHLORIDE 108 mmol/L (98-107); COR NA(FOR HYPERGLY) 146 mmol/L (136-145); CREATININE 2.35 mg/dL (0.70-1.30); SODIUM 145 mmol/L (136-145); TROPONIN I < 0.02 ng/mL (0-1.5); eGFR BLACK RACES 35 (>60); eGFR NON BLACK RACES 29 (>60)
[2018-03-13 01:13] LABS: ALANINE AMINOTRANSFERASE 18 Units/L (12-78); ALBUMIN 2.4 g/dL (3.4-5.0); ALKALINE PHOSPHATASE 63 Units/L (46-116); ASPARTATE AMINO TRANSFERASE 28 Units/L (15-37); CKMB % 0.4 % (<4); COR CA(FOR HYPOALB) 8.9 mg/dL (8.5-10.1); CREATINE KINASE 533 Units/L (39-308); CREATINE KINASE MB 2.2 ng/mL (0-4.0); TOTAL PROTEIN 6.9 g/dL (6.4-8.2)
[2018-03-13] MEDS ORDERED: DOPAMINE IV PREMIX 400 MG/250 ML 400 MG/250 ML BAG IV PRN (01:19)
--- NOTE | 2018-03-13 01:28 | RAD ---
AP chest Indication: Weakness with low O2 sat Comparison: 02/18/2018 Findings: Trachea is midline. Heart size is enlarged, unchanged. Chronic interstitial lung disease is noted; however, there is moderate increased interstitial opacities throughout the right lung most se verely affecting the right lung base consistent with multi focal infiltrate/acute bronchitis. Similar , less severe findings are noted within the left lung base. No pleural effusion or pneumothorax. Pleu ral parenchymal scarring is noted within the lung apices bilaterally. Calcified atherosclerotic disea se of a tortuous thoracic aorta is noted. Impression: 1.Acute interstitial pneumonia and/or bronchitis within the right upper, right lower and left lower l obes. 2. Stable cardiomegaly. Reported By:
[2018-03-13] MEDS ORDERED: NS 1000 ML 1,000 ML with POTASSIUM CHLORIDE INJ 30 MEQ VIAL 30 MEQ IV SCH ×2 (02:00)
[2018-03-13] MEDS ORDERED: M.S. CONTIN 15 MG (EXTENDED RELEASE) PO PRN (02:56)
[2018-03-13] MEDS ORDERED: ZOSYN VIAL 4.5 GM 4.5 GM in NS 100 ML IV + SPIKE MINIBAG* 100 ML IV SCH (03:00)
[2018-03-13] MEDS ORDERED: NS 1/2 1000 ML IV 1,000 ML IV SCH (03:00)
[2018-03-13 03:15] LABS: BILIRUBIN,URINE NEGATIVE (NEGATIVE); BLOOD/HEMOGLOBIN,URINE 3+ (NEGATIVE); GLUCOSE, URINE NEGATIVE (NEGATIVE); KETONES,URINE NEGATIVE (NEGATIVE); LEUKOCYTE ESTERASE ,URINE NEGATIVE (NEGATIVE); NITRITES,URINE NEGATIVE (NEGATIVE); PROTEIN,URINE 2+ (NEGATIVE); UROBILINOGEN,URINE NORMAL (NORMAL)
[2018-03-13 03:24] LABS: APPEARANCE,URINE CLEAR (CLEAR); COLOR,URINE YELLOW (YELLOW)
[2018-03-13 03:25] LABS: AMORPHOUS SEDIMENT,UR 1+ /HPF (NEGATIVE); BACTERIA,URINE TRACE /HPF (NEGATIVE); RBC,URINE 0-2 /HPF (NONE SEEN); SQUAMOUS EPITHELIAL CELL,UR FEW /HPF (NEGATIVE)
[2018-03-13] MEDS ORDERED: SALINE 3% 15 ML NEB TX ONE (03:47)
[2018-03-13] MEDS ORDERED: DUONEB 0.5 MG/3 MG ONE (04:03)
[2018-03-13] MEDS ORDERED: SALINE 3% 15 ML NEB TX NEB ONE (04:07)
[2018-03-13] MEDS: DUONEB 0.5 MG/3 MG NEB SCH ×6 (04:11→20:34)
[2018-03-13] MEDS ORDERED: POTASSIUM CHL 40 MEQ/NS 0.45% 500 ML IV PRN (04:32)
[2018-03-13] MEDS ORDERED: K-RIDER 10 MEQ/NS 100 ML 10 MEQ/100 ML BAG IV PRN (04:32)
[2018-03-13] MEDS ORDERED: POTASSIUM CHLORIDE LIQ 20 MEQ UDC PO PRN (04:32)
[2018-03-13] MEDS ORDERED: K-LYTE EFFERVESCENT PO PRN (04:32)
[2018-03-13] MEDS ORDERED: POTASSIUM CHL 60 MEQ/NS 0.45% 500 ML IV PRN (04:32)
[2018-03-13] MEDS: MAGNESIUM SULFATE 1 GM/100 mL PREMIX 1 GM/100 ML BAG IV PRN ×2 (04:50→05:48)
[2018-03-13 05:30] VITALS: BMI 17.4
[2018-03-13 06:17] LABS: BASOPHILS # (AUTO) 0.1 X10^3/uL (0.0-0.1); BASOPHILS % (AUTO) 0.9 % (0.2-1.0); EOSINOPHILS % (AUTO) 0.2 % (0.9-2.9); HEMATOCRIT 24.4 % (42.0-54.0); HEMOGLOBIN 8.4 g/dL (13.5-18.0); LYMPHOCYTES # (AUTO) 1.2 X10^3/uL (1.3-2.9); LYMPHOCYTES % (AUTO) 11.9 % (21.0-51.0); MEAN CORPUSCULAR HEMOGLOBIN 29.8 pg (27.0-34.0); MEAN CORPUSCULAR HGB CONC 34.5 g/dL (33.0-35.0); MEAN CORPUSCULAR VOLUME 86.3 fL (80.0-100.0); MEAN PLATELET VOLUME 8.9 fL (7.4-11.0); MONOCYTES # (AUTO) 0.8 x10^3/uL (0.3-0.8); MONOCYTES % (AUTO) 7.6 % (0.0-13.0); NEUTROPHILS # (AUTO) 8.1 x10^3/uL (2.2-4.8); NEUTROPHILS % (AUTO) 79.4 % (42.0-75.0); PLATELET COUNT 208 X10^3/uL (150.0-450.0); RED BLOOD COUNT 2.83 X10^6/uL (4.7-6.0); RED CELL DISTRIBUTION WIDTH 15.5 % (11.6-16.5); WHITE BLOOD COUNT 10.2 X10^3/uL (3.6-10.0)
[2018-03-13 06:38] LABS: ALBUMIN 2.2 g/dL (3.4-5.0); CALCIUM 7.6 mg/dL (8.5-10.1); CARBON DIOXIDE 21.7 mmol/L (21-32); CREATININE 2.03 mg/dL (0.70-1.30); TOTAL PROTEIN 6.7 g/dL (6.4-8.2)
[2018-03-13] MEDS ORDERED: CIPRO IV 400 MG PREMIX* 400 MG/200 ML IV.SOLN. IV SCH (09:00)
[2018-03-13] MEDS: MEGACE PO SCH ×3 (09:15→21:00)
[2018-03-13] MEDS: ALFUZOSIN HCL 10 MG PO SCH ×2 (09:15→09:36)
[2018-03-13] MEDS: COREG TAB 6.25 MG PO SCH ×2 (09:15→09:32)
[2018-03-13] MEDS: LASIX PO SCH ×2 (09:16→09:37)
[2018-03-13] MEDS: SYNTHROID 50 mcg TAB PO SCH ×2 (09:16→09:38)
[2018-03-13] MEDS: CORDARONE TAB 200 MG PO SCH ×2 (09:16→09:36)
[2018-03-13] MEDS: PROTONIX TAB 40 MG PO SCH ×2 (09:16→09:37)
[2018-03-13] MEDS: ZOSYN VIAL 3.375 GM 3.375 GM in NS 100 ML IV + SPIKE MINIBAG* 100 ML IV SCH ×2 (09:43→21:06)
[2018-03-13] MEDS ORDERED: PHARMACY CONSULT - TPN XX SCH (10:00)
[2018-03-13] MEDS ORDERED: PHARMACY CONSULT - VANCOMYCIN XX SCH (10:00)
[2018-03-13 10:03] LABS: ABG ALLEN TEST pos; ABG BASE EXCESS -0.3 mmol/L (-2.0-2.0); ABG HCO3 22.6 mmol/L (22-26)
[2018-03-13] MEDS ORDERED: NS 250 ML IV 250 ML IV ONE (10:13)
[2018-03-13] MEDS: LASIX IVP SCH (10:22)
--- NOTE | 2018-03-13 11:02 | CT ---
History: Weakness Study: CT brain without contrast. Sagittal and coronal reformations were provided. Comparison: February 22, 2018 Findings: There is no interval change. There is moderate enlargement of ventricles and sulci. There i s no hemorrhage or mass or edema. There is mild to moderate periventricular white matter low attenuat ion. The calvarium is intact. The sinuses are clear. Impression: Unchanged atrophy and periventricular white-matter small-vessel disease. No acute intracranial diseas e is demonstrated. Reported By:
[2018-03-13] MEDS: VANCOMYCIN HCL 1 GM VIAL 1 GM in D5W 250 ML IV 250 ML IV SCH (11:38)
[2018-03-13] MEDS: NS 1000 ML 1,000 ML IV SCH (11:51)
--- NOTE | 2018-03-13 11:53 | RAD ---
HISTORY: Central line placement Study: Chest AP portable Comparison: 03/13/2018 1:23 a.m. Findings: There is a left-sided central line with its tip in the superior vena cava. The heart is within normal limits in size. The aorta is calcified and ectatic. No congestive heart failure is noted. Diffuse in terstitial infiltrates are again identified some of which are chronic. The does appear to be some sup erimposed acute peribronchial alveolar infiltrate in the lower lobes bilaterally unchanged from the p rior examination. No definite pleural effusions are identified. IMPRESSION: Left-sided central line tip superior vena cava, no pneumothorax No change bilateral infiltrates likely a combination of chronic interstitial lung changes in acute pn eumonia/pneumonitis Reported By:
[2018-03-13] MEDS ORDERED: TRACE ELEMENTS IV SCH ×5 (12:00)
[2018-03-13] MEDS ORDERED: CLINIMIX IV SCH ×5 (12:00)
[2018-03-13] MEDS ORDERED: MVI IV SCH ×5 (12:00)
[2018-03-13] MEDS ORDERED: [UNRECOGNIZED DRUG - OTHER] IV SCH ×5 (12:00)
[2018-03-13] MEDS ORDERED: HumuLIN R SUBCUT PRN (13:58)
[2018-03-13] MEDS ORDERED: DEXTROSE 10% 1,000 ML IV PRN (13:58)
[2018-03-13] MEDS: MORPHINE SULFATE INJ 2 MG INJ IVP PRN ×2 (15:54→22:30)
[2018-03-13] MEDS ORDERED: MORPHINE SULFATE INJ 2 MG INJ IVP SCH (16:00)
[2018-03-13 16:14] LABS: CKMB % 0.4 % (<4); CREATINE KINASE MB 2.4 ng/mL (0-4.0); TROPONIN I 0.11 ng/mL (0-1.5)
[2018-03-13] MEDS: LOVENOX INJ 30 MG SYR SC SCH (17:04)
[2018-03-13] MEDS ORDERED: KLONOPIN TAB 1 MG PO SCH (21:00)
[2018-03-13] MEDS ORDERED: PATIENT'S HOME MEDICATION (Clonazepam [Clonazepam] 2 MG) PO SCH (21:00)
[2018-03-13] MEDS ORDERED: LIPOSYN III 20% 100ML 100 ML IV SCH (21:00)
[2018-03-13 22:42] LABS: CKMB % 0.3 % (<4); CREATINE KINASE MB 1.9 ng/mL (0-4.0); TROPONIN I 0.14 ng/mL (0-1.5)
[2018-03-14] MEDS ORDERED: VALIUM INJ IM PRN (00:30)
[2018-03-14] MEDS ORDERED: HALDOL INJ IM ONE (00:47)
[2018-03-14] MEDS: DUONEB 0.5 MG/3 MG NEB SCH ×5 (01:07→18:36)
[2018-03-14 02:54] LABS: CKMB % 0.3 % (<4); CREATINE KINASE MB 2.1 ng/mL (0-4.0); TROPONIN I 0.14 ng/mL (0-1.5)
[2018-03-14] MEDS: MORPHINE SULFATE INJ 2 MG INJ IVP PRN (03:08)
[2018-03-14 04:33] LABS: ABG BASE EXCESS 0.2 mmol/L (-2.0-2.0); ABG HCO3 23.5 mmol/L (22-26)
[2018-03-14 04:43] LABS: BASOPHILS # (AUTO) 0.1 X10^3/uL (0.0-0.1); BASOPHILS % (AUTO) 0.5 % (0.2-1.0); EOSINOPHILS % (AUTO) 0.3 % (0.9-2.9); HEMATOCRIT 27.4 % (42.0-54.0); HEMOGLOBIN 9.1 g/dL (13.5-18.0); LYMPHOCYTES # (AUTO) 0.9 X10^3/uL (1.3-2.9); LYMPHOCYTES % (AUTO) 6.8 % (21.0-51.0); MEAN CORPUSCULAR HEMOGLOBIN 28.6 pg (27.0-34.0); MEAN CORPUSCULAR HGB CONC 33.2 g/dL (33.0-35.0); MEAN CORPUSCULAR VOLUME 86.2 fL (80.0-100.0); MEAN PLATELET VOLUME 9.2 fL (7.4-11.0); MONOCYTES # (AUTO) 0.8 x10^3/uL (0.3-0.8); NEUTROPHILS # (AUTO) 11.7 x10^3/uL (2.2-4.8); NEUTROPHILS % (AUTO) 86.4 % (42.0-75.0); PLATELET COUNT 230 X10^3/uL (150.0-450.0); RED BLOOD COUNT 3.18 X10^6/uL (4.7-6.0); RED CELL DISTRIBUTION WIDTH 15.6 % (11.6-16.5); WHITE BLOOD COUNT 13.6 X10^3/uL (3.6-10.0)
[2018-03-14 04:50] LABS: PREALBUMIN 10.5 mg/dL (18-35.7)
[2018-03-14 04:51] LABS: ALBUMIN 2.3 g/dL (3.4-5.0); CALCIUM 7.8 mg/dL (8.5-10.1); CARBON DIOXIDE 22.1 mmol/L (21-32); COR CA(FOR HYPOALB) 9.2 mg/dL (8.5-10.1); CREATININE 1.56 mg/dL (0.70-1.30); MAGNESIUM 1.8 mg/dL (1.7-2.9); TOTAL PROTEIN 7.2 g/dL (6.4-8.2)
[2018-03-14] MEDS ORDERED: CIPRO IV 400 MG PREMIX* 400 MG/200 ML IV.SOLN. IV SCH (06:00)
--- NOTE | 2018-03-14 07:48 | RAD ---
HISTORY: Shortness breath Study: Single-view chest Comparison: Yesterday Findings: The trachea is midline. The cardiac silhouette is unremarkable. Stable left-sided central line is no andrei. The lungs demonstrate stable interstitial infiltrates are unchanged.. The bony thorax is unrem arkable. IMPRESSION: 1. Stable interstitial infiltrates. Reported By:
[2018-03-14] MEDS: CORDARONE TAB 200 MG PO SCH (08:16)
[2018-03-14] MEDS: ALFUZOSIN HCL 10 MG PO SCH (08:16)
[2018-03-14] MEDS: LASIX IVP SCH (08:17)
[2018-03-14] MEDS: LOVENOX INJ 30 MG SYR SC SCH (08:17)
[2018-03-14] MEDS: VANCOMYCIN HCL 1 GM VIAL 1 GM in D5W 250 ML IV 250 ML IV SCH (08:18)
[2018-03-14] MEDS: ZOSYN VIAL 3.375 GM 3.375 GM in NS 100 ML IV + SPIKE MINIBAG* 100 ML IV SCH (08:19)
[2018-03-14] MEDS: MEGACE PO SCH (08:20)
[2018-03-14] MEDS: PROTONIX TAB 40 MG PO SCH (08:23)
[2018-03-14] MEDS: SYNTHROID 50 mcg TAB PO SCH (08:23)
[2018-03-14] MEDS ORDERED: [UNRECOGNIZED DRUG - OTHER] IV SCH ×5 (09:00)
[2018-03-14] MEDS ORDERED: CLINIMIX IV SCH ×5 (09:00)
[2018-03-14] MEDS ORDERED: TRACE ELEMENTS IV SCH ×5 (09:00)
[2018-03-14] MEDS ORDERED: MVI IV SCH ×5 (09:00)
[2018-03-14] MEDS: VERSED IVP PRN ×3 (09:47→11:40)
[2018-03-14] MEDS: NS 1000 ML 1,000 ML IV SCH (10:02)
[2018-03-14] MEDS ORDERED: MORPHINE SULFATE PCA 30 MG ONE (11:56)
[2018-03-14] MEDS ORDERED: NS 100 ML IV 100 ML IV ONE (11:57)
[2018-03-14] MEDS ORDERED: VERSED ONE (11:57)
[2018-03-14] MEDS ORDERED: VERSED 100 MG in NS 100 ML IV 80 ML IV PRN (12:24)
[2018-03-14] MEDS ORDERED: MORPHINE SULFATE PCA 30 MG IVP SCH (12:24)
[2018-03-14] MEDS ORDERED: MORPHINE SULFATE PCA 30 MG IVP PRN (12:31)
[2018-03-14 21:06] VITALS: BP 74/47
--- NOTE | 2018-03-15 12:43 | DR.H&P ---
H&P - History & Physical for Day of: H&P Date: 03/13/18 - Chief Complaint Chief Complaint: weakness, falls, short of breath - Allergies Allergies/Adverse Reactions: Allergies Allergy/AdvReac Type Severity Reaction Status Date / Time baclofen Allergy Verified 02/18/18 10:28 - History of Present Illness History of Present Illness: is a 78 year old patient of ours who presented to the emergency room via EMS with reports of weakness and frequent falls for the past two days. Patient reports he had an EGD two weeks ago and has been unable to eat well since then. On arrival to the hospital patient noted with a blood pressure of 90/54 and an oxygen saturation of 85% on room and was placed on oxygen at 3l/min via nasal cannula. Labs were obtained and reported the following abnormal values: @0040 WBC 10.5, RBC 2.95, Hgb 8.6, Hct 25.7, Neut% 77.4, Lymph% 13.0, Eos% 0.7, Neut# 8.1, INR 1.33, Sodium 146, Potassium 3.1, Chloride 108, BUN 32, Creatinine 2.35, GFR af 35, GFR non 29, Glucose 121, Calcium 7.6, Magnesium 1.6, Creatine Kinase 533, Albumin 2.4, A/G Ratio 0.5. Urinalysis revealed: Protein 2+, Occult Blood 3+, RBC 0-2, WBC 0-2, Sediment 1+, Bacteria Trace. Blood Cultures x2 Pending. Chest X-Ray reported: Acute interstitial pneumonia and/or bronchitis within the right upper, right lower and left lower lobes. Stable cardiomegaly. EKG revealed: Sinus Rhythm. Rate=81. Patient noted with shortness of breath at rest and on exertion with us of accessory muscles with respirations. On auscultation of lung hoang patient noted with diminished breath sounds throughout. Oxygen saturation was noted to fall to the 50s on nasal cannula and was placed on the Bi-pap at 5/10 and FiO2 at 100%. Patient started on a Dopamine drip at 2.09mcg/kg/min and will titrate per protocol. Labs were repeated at 0527 and reveled the following abnormal values: WBC 10.2, RBC 2.83, Hgb 8.4, Hct 24.4, Neut% 79.4, Lymph% 11.9, Eos% 0.2 , Neut# 8.1, Lymph# 1.2, Potassium 3.4, Chloride 110, BUN 30, Creatinine 2.03, GFR af 41, GFR non 34, Glucose 112, Calcium 7.6, Albumin 2.2, A/G Ratio 0.5. ABG revelaed: w/FiO2 @32% - pCO2 31.0, pO2 38.0, HCO3 21.1, O2 Sat 75.0, Base Excess -2.2. Patient admitted to ICU and placed on continuous patient registration rep, pulse oximetry and NIBP. Will follow up with labs in the morning. - Past Medical History Past Medical History: Anxiety, Arthritis, Coronary Artery Disease, Hypertension , Hypothyroidism Additional Medical History: Left Heart Failure, BPH, Lumbar Disc Disease w/ Radiculopathy, Aortic Aneurysm, A-Fib - Past Surgical History Surgical History: Other Additional Surgical History: Kyphoplasty 2013, Colostomy Reversal, Hemorrhoidectomy - Family History Family Medical History: Cancer, Heart Failure, Hypertension - Social History Does patient currently use any type of tobacco product: No Have you used tobacco products in the last 12 months: No Type of Tobacco Use: None Does any household member use tobacco: No Alcohol Use: None - Medications Home Medications: Alfuzosin HCl [Alfuzosin HCl ER] 10 mg PO DAILY 03/13/18 [History Confirmed 02/25] - Review of Systems Constitutional: See HPI, Weakness, Malaise. denies: Fever Eyes: No Symptoms Reported ENT: No Symptoms Reported Respiratory: See HPI, Shortness of Breath, SOB with Excertion Cardiovascular: No Symptoms Reported Gastrointestinal: No Symptoms Reported Genitourinary: No Symptoms Reported Musculoskeletal: No Symptoms Reported Skin: No Symptoms Reported Neurological: Weakness, Confusion - Physical Exam Vital Signs: Temperature 96.9 F Pulse Rate [Left] 65 Pulse Rate 97 Respiratory Rate 28 Blood Pressure [Left Arm] 88/52 Blood Pressure [Right Arm] 74/47 Blood Pressure [Right Radial 117/68 Artery] Blood Pressure 90/54 O2 Sat by Pulse Oximetry 48 Oriented: Not Oriented Eyes: Normal Ear: Normal Nose: Normal Throat: Normal Respiratory: Diminished Throughout Cardiovascular: Normal : Normal Auscultation: Bowel Sounds: Normal Palpation: Normal Tenderness: Normal Skin: Normal Musculoskeletal: Normal Psychiatric: Normal Mood Description: Calm Affect: Normal Speech Pattern: Clear - Assessment/Plan (1) Respiratory distress Status: Acute Plan: bipap, respiratory treatments, cipro, zosyn, lasix 20mg iv daily, continue to monitor (2) Dehydration Status: Acute Plan: 1/2 ns at 75ml/hr, continue to monitor (3) Acute prerenal azotemia Status: Acute Plan: 1/2 NS AT 75ML/HR, CONTINUE TO MONITOR
== END 2018-03-14 22:48 | disposition expired | DRG 204 ==
LOC: ER 00:15 → ICU 02:40 → UNDOADMIN 02:40 → ICU 02:56
PROVIDERS: ADMIT Obstetrics & Gynecology Obstetrics; ATTEND Internal Medicine
PROC: 05H633Z Insertion of Infusion Device into Left Subclavian Vein, Percutaneous Approach (ICD-10-PCS; principal; 2018-03-13)
DX: R06.03 Acute respiratory distress (principal); J18.8 Other pneumonia, unspecified organism; I46.9 Cardiac arrest, cause unspecified; E86.0 Dehydration; R79.89 Other specified abnormal findings of blood chemistry; I95.89 Other hypotension; R53.1 Weakness; E87.6 Hypokalemia; I25.10 Atherosclerotic heart disease of native coronary artery without angina pectoris; R06.2 Wheezing; R29.6 Repeated falls; I10 Essential (primary) hypertension; R94.31 Abnormal electrocardiogram [ECG] [EKG]; I87.2 Venous insufficiency (chronic) (peripheral); Z66 Do not resuscitate; Z78.1 Physical restraint status
CPT/HCPCS: 36415; 36556; 36600; 51702; 70450; 71045; 80053; 81001; 82550; 82553; 82803; 83605; 83735; 84100; 84134; 84478; 84484; 85025; 85610; 85730; 87040; 93005; 94640; 94660; 96365; 96367; 96374; 96375; 99284; 99285; A4222; A4618; A7030; B5200; S0179; J0744; J1265; J1630; J1650; J1940; J2250; J2270; J2271; J2543; J3360; J3370; J3480; J7620